=== PATIENT | female | born 1940 | race Caucasian/White ===

== ENCOUNTER → 2018-10-27 | Outpatient (CLI) | payer MEDICARE ==
[~2018-10-27] MED LIST: ALEN70; ASPI325; ASPI81CH; ATEN50 PO; ATOR20; CHOL10002; FISH1000; FURO20; MAGCHL64ER; POTA8; VITAMIN C500 MG
== END | disposition home or self-care (01) ==
LOC: LAB SHORT 07:52 → PLD 07:52
DX: D48.5 Neoplasm of uncertain behavior of skin (principal)
CPT/HCPCS: 88305

== ENCOUNTER → 2018-11-12 | Outpatient (CLI) | payer MEDICARE | END | disposition home or self-care (01) | LOC: PLD 08:11 → LAB SHORT 08:11 | DX: C44.41 Basal cell carcinoma of skin of scalp and neck (principal) | CPT/HCPCS: 88305 ==

== ENCOUNTER 2019-04-23 15:31 | Emergency (ER) | payer MEDICARE ==
[~2019-04-23] VITALS: Ht 147.3 cm; Wt 72.6 kg
[2019-04-23 16:20] LABS: BASOPHILS ABSOLUTE AUTO 0.06 K/mm3 (0.00-0.23); BASOPHILS PERCENT AUTO 0 % (0-2); EOSINOPHILS ABSOLUTE AUTO 0.19 K/mm3 (0.00-0.68); EOSINOPHILS PERCENT AUTO 1 % (0-6); Hematocrit 41.9 % (33.0-51.0); Hemoglobin 13.9 g/dL (11.5-16.0); IMMATURE GRAN ABSOLUTE AUTO 0.11 K/mm3 (0.00-0.10); IMMATURE GRAN PERCENT AUTO 1 % (0-1); LYMPHOCYTES ABSOLUTE AUTO 1.01 K/mm3 (0.84-5.20); LYMPHOCYTES PERCENT AUTO 6 % (21-46); MONOCYTES ABSOLUTE AUTO 1.15 K/mm3 (0.16-1.47); MONOCYTES PERCENT AUTO 6 % (4-13); Mean Corpuscular HGB 29.8 pg (26.0-34.0); Mean Corpuscular HGB Conc 33.2 g/dL (31.5-36.5); Mean Corpuscular Volume 90 fL (80-100); Mean Platelet Volume 11.8 fL (9.1-12.4); NEUTROPHILS ABSOLUTE AUTO 15.65 K/mm3 (1.96-9.15); NEUTROPHILS PERCENT AUTO 86 % (41-73); Platelet Count 170 K/mm3 (150-400); RDW Coefficient Variation 13.2 % (11.7-14.2); RDW Standard Deviation 43.5 fL (35.1-46.3); Red Blood Cell Count 4.67 M/mm3 (3.80-5.20); White Blood Cell Count 18.17 K/mm3 (4.00-11.30)
[2019-04-23 16:50] LABS: Alanine Aminotransfer (ALT/SGP 23 U/L (12-78); Albumin, Blood 3.7 g/dL (3.4-5.0); Alk Phos 75 U/L (50-136); Anion Gap 8 mmol/L (6-16); Aspartate Aminotrans (AST/SGOT 20 U/L (12-37); Bilirubin, Total 0.7 mg/dL (0.1-1.0); Blood Urea Nitrogen 40 mg/dL (8-24); Bun/Creatinine Ratio 37.7 (12.0-20.0); CO2, Blood 28 mmol/L (21-32); Calcium, Blood 9.5 mg/dL (8.5-10.1); Chloride, Blood 100 mmol/L (98-108); Creatinine, Blood 1.06 mg/dL (0.40-1.00); Globulin, Blood 3.8 g/dL (2.2-4.0); Glomerular Filtration Rate 53 (60-); Glucose, Blood 111 mg/dL (70-99); Potassium, Blood 3.9 mmol/L (3.5-5.5); Sodium, Blood 136 mmol/L (136-145); Total Protein, Blood 7.5 g/dL (6.4-8.2); Troponin I <0.015 ng/mL (0.000-0.040)
[2019-04-23 17:47] LABS: Source, Urine Clean Catch
[2019-04-23 17:58] LABS: Bilirubin, Urine Neg (Neg); Blood, Urine 2+ (Neg); Glucose Qualitative, Urine Neg (Neg); Ketones, Urine Neg (Neg); Leukocyte Esterase, Urine 3+ (Neg); Nitrite, Urine Neg (Neg); Protein, Urine 2+ (Neg); Specific Gravity, Urine 1.015 (1.003-1.022); Urobilinogen, Urine NORM (Normal)
[2019-04-23 18:12] LABS: Appearance, Urine Clear (Clear); Color, Urine Yellow (P-Yellow)
[2019-04-23 18:13] LABS: Bacteria Many /hpf; Squamous Epithelial Cells Few /hpf (Few); Transitional Epithelial Cells Few /hpf (0-Rare); White Blood Cells, Urine TNTC /hpf (0-5)
[2019-04-23] MEDS ORDERED: Macrobid 100 M100 MG PO (18:26)
== END 2019-04-23 18:55 | disposition home or self-care (01) ==
LOC: ER 15:31
PROVIDERS: Emergency Medicine
DX: R07.81 Pleurodynia (principal); N39.0 Urinary tract infection, site not specified; J44.9 Chronic obstructive pulmonary disease, unspecified; I50.9 Heart failure, unspecified; Z87.891 Personal history of nicotine dependence
CPT/HCPCS: 36415; 71046; 80053; 81001; 83880; 84484; 85025; 87086; 93005; 93010; 99284-25

== ENCOUNTER 2021-02-23 11:55 | Day surgery (SDC) | payer MEDICARE ==
[~2021-02-23] VITALS: Ht 147.3 cm; Wt 74.0 kg
[~2021-02-23 11:55] MED LIST changes: +ALEN70 PO; +ALLO300 PO; +ATOR20 PO; +Aspirin EC81 MG PO; +EPIPEN0.3 MG/0.3 IM; +FISH OIL 1,2001 EAC7 PO; +GABA300 PO; +Macrobid 100 M100 MG PO; +NAPR500 PO; +POTCHL20ER PO; +PROLIA60 MG/1 ML SC; +QVAR REDIHALE10.6 G2 INH; +VITAMIN D325 MC3 PO
[2021-02-23] MEDS ORDERED: ASCORBIC ACID500 MG (12:42)
[2021-02-23] MEDS ORDERED: TOCO1000 (12:42)
[2021-02-23] MEDS ORDERED: CANDICIDAL CAP1 EACH (12:42)
== END 2021-02-23 14:38 | disposition home or self-care (01) ==
LOC: ORSCSDS 11:55
PROVIDERS: Surgery
PROC: 0DJD8ZZ Inspection of Lower Intestinal Tract, Via Natural or Artificial Opening Endoscopic (ICD-10-PCS; principal; 2021-02-23 13:30)
DX: Z12.11 Encounter for screening for malignant neoplasm of colon (principal); Z80.0 Family history of malignant neoplasm of digestive organs; Z86.010 Personal history of colon polyps; K57.30 Diverticulosis of large intestine without perforation or abscess without bleeding; I25.10 Atherosclerotic heart disease of native coronary artery without angina pectoris; J44.9 Chronic obstructive pulmonary disease, unspecified; E78.5 Hyperlipidemia, unspecified; I10 Essential (primary) hypertension; N18.9 Chronic kidney disease, unspecified; I50.9 Heart failure, unspecified; Z79.899 Other long term (current) drug therapy; Z79.82 Long term (current) use of aspirin
CPT/HCPCS: 82947; J2704; J7120

== ENCOUNTER → 2022-02-20 | Outpatient (CLI) | payer MEDICARE ==
[~2022-02-20] MED LIST changes: +ASCORBIC ACID500 MG; +CANDICIDAL CAP1 EACH; +TOCO1000
== END | disposition home or self-care (01) ==
LOC: LAB 19:01 → LAB SHORT 19:01
DX: N39.0 Urinary tract infection, site not specified (principal)
CPT/HCPCS: 87077; 87086; 87186

== ENCOUNTER → 2022-04-26 | Outpatient (CLI) | payer MEDICARE ==
[2022-04-26 15:06] LABS: Source, Urine Clean Catch
[2022-04-26 15:36] LABS: Red Blood Cells, Urine 0-2 /hpf (0-2)
[2022-04-26 15:37] LABS: Bacteria Mod /hpf; Hyaline Casts 0-2 /lpf (0-2); Squamous Epithelial Cells Rare /hpf (Few); Transitional Epithelial Cells Rare /hpf (0-Rare)
== END | disposition home or self-care (01) ==
LOC: LAB SHORT 14:07 → LAB 14:07
PROVIDERS: Family Medicine
DX: R39.15 Urgency of urination (principal)
CPT/HCPCS: 81015; 87077; 87086; 87186

== ENCOUNTER → 2022-05-23 | Outpatient (CLI) | payer MEDICARE | END | disposition home or self-care (01) | LOC: LAB 17:12 → LAB SHORT 17:12 | DX: R53.83 Other fatigue (principal) | CPT/HCPCS: 84443 ==

== ENCOUNTER → 2022-10-07 | Outpatient (CLI) | payer MEDICARE ==
[2022-10-07 15:45] LABS: BASOPHILS ABSOLUTE AUTO 0.06 K/mm3 (0.00-0.23); BASOPHILS PERCENT AUTO 1 % (0-2); EOSINOPHILS ABSOLUTE AUTO 0.49 K/mm3 (0.00-0.68); EOSINOPHILS PERCENT AUTO 6 % (0-6); Hematocrit 39.5 % (33.0-51.0); Hemoglobin 13.1 g/dL (11.5-16.0); IMMATURE GRAN ABSOLUTE AUTO 0.02 K/mm3 (0.00-0.10); IMMATURE GRAN PERCENT AUTO 0 % (0-1); LYMPHOCYTES ABSOLUTE AUTO 1.79 K/mm3 (0.84-5.20); LYMPHOCYTES PERCENT AUTO 21 % (21-46); MONOCYTES ABSOLUTE AUTO 0.77 K/mm3 (0.16-1.47); MONOCYTES PERCENT AUTO 9 % (4-13); Mean Corpuscular HGB 29.8 pg (26.0-34.0); Mean Corpuscular HGB Conc 33.2 g/dL (31.5-36.5); Mean Corpuscular Volume 90 fL (80-100); Mean Platelet Volume 10.2 fL (9.1-12.4); NEUTROPHILS ABSOLUTE AUTO 5.31 K/mm3 (1.96-9.15); NEUTROPHILS PERCENT AUTO 63 % (41-73); Platelet Count 248 K/mm3 (150-400); RDW Coefficient Variation 13.4 % (11.7-14.2); RDW Standard Deviation 44.3 fL (35.1-46.3); Red Blood Cell Count 4.39 M/mm3 (3.80-5.20); White Blood Cell Count 8.44 K/mm3 (4.00-11.30)
[2022-10-07 15:55] LABS: Albumin, Blood 3.9 g/dL (3.4-5.0); Bilirubin, Total 0.4 mg/dL (0.1-1.0); Bun/Creatinine Ratio 24.3 (12.0-20.0); Calcium, Blood 9.7 mg/dL (8.5-10.1); Creatinine, Blood 1.11 mg/dL (0.40-1.00); Globulin, Blood 3.8 g/dL (2.2-4.0); Magnesium, Blood 2.4 mg/dL (1.6-2.4); Potassium, Blood 4.3 mmol/L (3.5-5.5); Total Protein, Blood 7.7 g/dL (6.4-8.2)
== END | disposition home or self-care (01) ==
LOC: LAB 15:39 → LAB SHORT 15:39
PROVIDERS: Emergency Medicine
DX: R55 Syncope and collapse (principal)
CPT/HCPCS: 80053; 83735; 83880; 84484; 85025

== ENCOUNTER → 2022-11-26 | Outpatient (CLI) | payer MEDICARE | END | disposition home or self-care (01) | LOC: PLD 07:18 → LAB SHORT 07:18 | DX: L57.0 Actinic keratosis (principal); L57.8 Other skin changes due to chronic exposure to nonionizing radiation | CPT/HCPCS: 88305 ==

== ENCOUNTER 2022-12-05 15:42 | Inpatient (IN) | payer MEDICARE ==
[~2022-12-05] VITALS: Ht 160 cm; Wt 77.5 kg
[2022-12-05 16:33] LABS: BASOPHILS ABSOLUTE AUTO 0.06 K/mm3 (0.00-0.23); BASOPHILS PERCENT AUTO 1 % (0-2); EOSINOPHILS ABSOLUTE AUTO 0.54 K/mm3 (0.00-0.68); EOSINOPHILS PERCENT AUTO 6 % (0-6); Hematocrit 39.3 % (33.0-51.0); Hemoglobin 12.7 g/dL (11.5-16.0); IMMATURE GRAN ABSOLUTE AUTO 0.03 K/mm3 (0.00-0.10); IMMATURE GRAN PERCENT AUTO 0 % (0-1); LYMPHOCYTES ABSOLUTE AUTO 2.12 K/mm3 (0.84-5.20); LYMPHOCYTES PERCENT AUTO 25 % (21-46); MONOCYTES PERCENT AUTO 7 % (4-13); Mean Corpuscular HGB 28.9 pg (26.0-34.0); Mean Corpuscular HGB Conc 32.3 g/dL (31.5-36.5); Mean Corpuscular Volume 89 fL (80-100); Mean Platelet Volume 10.7 fL (9.1-12.4); NEUTROPHILS ABSOLUTE AUTO 5.12 K/mm3 (1.96-9.15); NEUTROPHILS PERCENT AUTO 60 % (41-73); Platelet Count 210 K/mm3 (150-400); RDW Coefficient Variation 13.3 % (11.7-14.2); White Blood Cell Count 8.47 K/mm3 (4.00-11.30)
[2022-12-05 16:46] LABS: International Normalized Ratio 1.04; Prothrombin Time Results 10.9 Sec (9.7-11.5)
[2022-12-05 16:57] LABS: Albumin, Blood 3.7 g/dL (3.4-5.0); Bilirubin, Total 0.4 mg/dL (0.1-1.0); Bun/Creatinine Ratio 41.9 (12.0-20.0); Calcium, Blood 8.8 mg/dL (8.5-10.1); Creatinine, Blood 1.05 mg/dL (0.40-1.00); Globulin, Blood 3.7 g/dL (2.2-4.0); Potassium, Blood 4.1 mmol/L (3.5-5.5); Total Protein, Blood 7.4 g/dL (6.4-8.2)
[2022-12-05] MEDS ORDERED: SPIR25 PO (17:14)
[2022-12-05] MEDS ORDERED: TORSE20 PO (17:14)
[2022-12-05] MEDS ORDERED: TRAM50 PO (17:14)
[2022-12-05 19:47] VITALS: BP 156/38
--- NOTE | 2022-12-05 21:26 | NUR ---
TRANSFER NOTE/ASSUMPTION OF CARE THIS RN RECEIVED REPORT FROM GELACIO BARNES VIA TELEPHONE. PATIENT TRANSFERRED TO PCU AT 1957. PATIENT AMBULATED TO BED FROM [facility] WITH PERSONAL WALKER. PATIENT EDUCATED ON BEDREST STATUS D/T HEART BLOCK. PATIENT VERBALIZED UNDERSTANDING. BP STABLE WITH SBP 140-150'S. SPO2 >94% ON RA. SB WITH 1ST DEGREE HB ON MONITOR, IN/OUT OF 3RD DEGREE HB AT TIMES. DENIES CHEST PAIN/PRESSURE, SOB, DIZZINESS/LIGHTHEADEDNESS. BLE EDEMA NOTED. ANNE. BS+. PPP. ALERT AND ORIENTED FULLY. ABLE TO MAKE NEEDS KNOWN. MD MOORE AT BEDSIDE TO DISCUSS PLAN OF CARE. PT WILL BE NPO AT MIDNIGHT FOR PACEMAKER PLACEMENT IN TOMORROW. PT VERBALIZED UNDERSTANDING OF PLAN OF CARE. BED IN LOWEST POSITION AND CALL LIGHT WITHIN REACH.
[2022-12-05 23:28] VITALS: BP 153/67
[2022-12-06] VITALS (7 sets, daily range): BP systolic 111–166; BP diastolic 43–92
--- NOTE | 2022-12-06 04:51 | NUR ---
SHIFT SUMMARY NO ACUTE CHANGES OVERNIGHT. PATIENT CONTINUES TO BE SB/SR WITH 1ST DEGREE HB AND BBB, WITH HR 43-70S. DENIES CHEST PAIN/PRESSURE, SOB, DIZZINESS/LIGHTHEADEDNESS. BP STABLE. AFEBRILE. SPO2 >92% ON RA. PATIENT HAS BEEN NPO SINCE MIDNIGHT. PATIENT VERBALIZES UNDERSTANDING PLAN OF CARE. NO OTHER CHANGES SINCE PREVIOUS NOTE. SEE ASSESSMENT. BED IN LOWEST POSITION AND CALL LIGHT WITHIN REACH. THIS RN WILL CONTINUE TO MONITOR UNTIL SHIFT CHANGE AT 0700.
[2022-12-06 05:15] LABS: BASOPHILS ABSOLUTE AUTO 0.05 K/mm3 (0.00-0.23); BASOPHILS PERCENT AUTO 1 % (0-2); EOSINOPHILS ABSOLUTE AUTO 0.67 K/mm3 (0.00-0.68); EOSINOPHILS PERCENT AUTO 9 % (0-6); Hematocrit 36.3 % (33.0-51.0); Hemoglobin 11.7 g/dL (11.5-16.0); IMMATURE GRAN ABSOLUTE AUTO 0.01 K/mm3 (0.00-0.10); IMMATURE GRAN PERCENT AUTO 0 % (0-1); LYMPHOCYTES ABSOLUTE AUTO 2.09 K/mm3 (0.84-5.20); LYMPHOCYTES PERCENT AUTO 29 % (21-46); MONOCYTES ABSOLUTE AUTO 0.69 K/mm3 (0.16-1.47); MONOCYTES PERCENT AUTO 10 % (4-13); Mean Corpuscular HGB 28.9 pg (26.0-34.0); Mean Corpuscular HGB Conc 32.2 g/dL (31.5-36.5); Mean Corpuscular Volume 90 fL (80-100); Mean Platelet Volume 11.1 fL (9.1-12.4); NEUTROPHILS ABSOLUTE AUTO 3.78 K/mm3 (1.96-9.15); NEUTROPHILS PERCENT AUTO 52 % (41-73); Platelet Count 199 K/mm3 (150-400); RDW Coefficient Variation 13.3 % (11.7-14.2); RDW Standard Deviation 44.4 fL (35.1-46.3); Red Blood Cell Count 4.05 M/mm3 (3.80-5.20); White Blood Cell Count 7.29 K/mm3 (4.00-11.30)
[2022-12-06 06:01] LABS: Alanine Aminotransfer (ALT/SGP 21 U/L (12-78); Albumin, Blood 3.3 g/dL (3.4-5.0); Albumin/Globulin Ratio 1.1 (0.8-1.8); Alk Phos 44 U/L (50-136); Anion Gap 2 mmol/L (6-16); Aspartate Aminotrans (AST/SGOT 23 U/L (12-37); Bilirubin, Total 0.4 mg/dL (0.1-1.0); Blood Urea Nitrogen 44 mg/dL (8-24); Bun/Creatinine Ratio 40.4 (12.0-20.0); CHOL/HDL RATIO 2.2; CO2, Blood 31 mmol/L (21-32); Calcium, Blood 8.8 mg/dL (8.5-10.1); Chloride, Blood 105 mmol/L (98-108); Cholesterol 155 mg/dL (50-200); Creatinine, Blood 1.09 mg/dL (0.40-1.00); Glomerular Filtration Rate 51 (60-); Glucose, Blood 110 mg/dL (70-99); HDL Cholesterol 72 mg/dL (>39); Low Density Lipoprotein Chol 69 mg/dL (0-110); Potassium, Blood 3.4 mmol/L (3.5-5.5); Sodium, Blood 138 mmol/L (136-145); Total Protein, Blood 6.3 g/dL (6.4-8.2); Triglycerides 68 mg/dL (30-160); Very Low Density Lipoprot Chol 13 mg/dL (6-32)
--- NOTE | 2022-12-06 15:33 | NUR ---
SHIFT SUMMARY PATIENT ALERT AND ORIENTED. NPO IN AM AND BEDREST FOR PACEMAKER. RETURNED FROM [facility] AT 1300. COMPRESSION DRESSING IN PLACE TO LEFT CHEST C/D/I. VSS. ROOM AIR. TELE PACED 60S-70S. LEFT ARM IN SLING. BEDREST EXCEPT FOR COMMODE. TOLERATING CARDIAC DIET AND LIQUIDS, VOIDING WELL. REPORTS PRESSURE AND BURNING WITH URINATION LIKE SHE IS GETTING A UTI. SPOKE WITH DR MCFARLANE AND URINE SAMPLE SENT TO LAB. PLAN IS TO MONITOR OVERNIGHT AND PROBABLE DISCHARGE HOME TOMORROW 07/09/23. ATTENTIVE IN ROOM. WILL GIVE REPORT TO MANUEL LEMA RN.
[2022-12-06 15:41] LABS: Source, Urine Clean Catch
[2022-12-06 15:48] LABS: Appearance, Urine Cloudy (Clear); Bilirubin, Urine Neg (Neg); Blood, Urine 3+ (Neg); Color, Urine Yellow (P-Yellow); Glucose Qualitative, Urine Neg (Neg); Ketones, Urine Neg (Neg); Leukocyte Esterase, Urine 3+ (Neg); Nitrite, Urine Neg (Neg); Protein, Urine 2+ (Neg); Specific Gravity, Urine 1.015 (1.003-1.022); Urobilinogen, Urine NORM (Normal)
[2022-12-06 16:08] LABS: White Blood Cells, Urine TNTC /hpf (0-5)
[2022-12-06 16:09] LABS: Bacteria Few /hpf; Squamous Epithelial Cells Few /hpf (Few)
--- NOTE | 2022-12-06 18:28 | NUR ---
NO CHANGES IN PT CONDITION SINCE ASSUMING CARE. NO CHANGES TO PACEMAKER SITE. PT ABLE TO USE CALL LIGHT FOR NEEDS, CALL LIGHT IN REACH, WILL CONTINUE TO MONITOR AND GIVE REPORT TO NOC SHIFT RN.
--- NOTE | 2022-12-06 21:11 | NUR ---
ASSUMPTION OF CARE THIS RN ASSUMED CARE OF PATIENT AT 1900. REPORT TAKEN FROM MANUEL BARNES. PATIENT ALERT AND ORIENTED FULLY. LEFT CHEST WALL PACEMAKER SITE WITH PRESSURE DRESSING IN PLACE. GAUZE/TEGADERM DRESSING UNDER PRESSURE DRESSING WITH DRY BLOOD ON GAUZE. NO SIGNS OF CONTNIUED BLEEDING, HEMATOMA, OR DISCOLORATION. TENDER TO PALPATION. ICE PACK GIVEN. NO NOTED SUBCUTANEOUS EMPHYSEMA WITH PALPATION. SLING IN PLACE ON LEFT ARM. PATIENT VERBALIZED UNDERSTANDING LIMITATIONS TO ARM MOVEMENTS. MEDICATED PER EMAR FOR PAIN. BP STABLE. SR ON MONITOR WITH BBB AND OCCASIONAL PACED BEATS NOTED, HR 60-70'S. AFEBRILE. SPO2 >92% ON RA. DENIES CHEST PAIN/PRESSURE. ANNE. BS+. C/O BURNING WITH URINATION; UA SENT ON THE PREVIOUS SHIFT. CALLS APPROPRIATELY FOR ASSISTANCE. 1P ASSIST TO BSC WITH 4WW. BED IN LOWEST POSITION AND CALL LIGHT WITHIN REACH.
[2022-12-07 03:37] VITALS: BP 135/45
--- NOTE | 2022-12-07 05:16 | NUR ---
SHIFT SUMMARY NO ACUTE CHANGES OVERNIGHT. PACEMAKER DRESSING CONTINUES TO HAVE SMALL AMOUNT OF DRY SANGUINOUS DRAINAGE ON GAUZE. TENDER TO TOUCH. NO SUBCUTANEOUS EMPYSEMA, INFLAMMATION OR HEMATOMA NOTED. SR BBB WITH OCCASIONAL PACED BEATS HR 60-70'S. BP STABLE. SPO2 >92% ON RA. AFEBRILE. PPP. BLE EDEMA NOTED. ALERT AND ORIENTED FULLY AND CALLING APPROPRIATELY FOR ASSISTANCE. 1P ASSIST TO BSC. BED IN LOWEST POSITION AND CALL LIGHT WITHIN REACH. SLING IN PLACE. THIS RN WILL CONTINUE TO MONITOR UNTIL SHIFT CHANGE AT 0700.
[2022-12-07 06:04] LABS: BASOPHILS ABSOLUTE AUTO 0.04 K/mm3 (0.00-0.23); BASOPHILS PERCENT AUTO 0 % (0-2); EOSINOPHILS ABSOLUTE AUTO 0.42 K/mm3 (0.00-0.68); EOSINOPHILS PERCENT AUTO 5 % (0-6); Hematocrit 38.4 % (33.0-51.0); Hemoglobin 12.7 g/dL (11.5-16.0); IMMATURE GRAN ABSOLUTE AUTO 0.02 K/mm3 (0.00-0.10); IMMATURE GRAN PERCENT AUTO 0 % (0-1); LYMPHOCYTES ABSOLUTE AUTO 1.29 K/mm3 (0.84-5.20); LYMPHOCYTES PERCENT AUTO 14 % (21-46); MONOCYTES ABSOLUTE AUTO 0.74 K/mm3 (0.16-1.47); MONOCYTES PERCENT AUTO 8 % (4-13); Mean Corpuscular HGB 29.5 pg (26.0-34.0); Mean Corpuscular HGB Conc 33.1 g/dL (31.5-36.5); Mean Corpuscular Volume 89 fL (80-100); Mean Platelet Volume 10.8 fL (9.1-12.4); NEUTROPHILS ABSOLUTE AUTO 6.53 K/mm3 (1.96-9.15); NEUTROPHILS PERCENT AUTO 72 % (41-73); Platelet Count 197 K/mm3 (150-400); RDW Coefficient Variation 13.6 % (11.7-14.2); RDW Standard Deviation 44.7 fL (35.1-46.3); White Blood Cell Count 9.04 K/mm3 (4.00-11.30)
[2022-12-07 06:31] LABS: Bun/Creatinine Ratio 31.8 (12.0-20.0); Calcium, Blood 8.7 mg/dL (8.5-10.1); Creatinine, Blood 0.82 mg/dL (0.40-1.00)
[2022-12-07 07:42] VITALS: BP 135/41
--- NOTE | 2022-12-07 07:42 | NUR ---
Given educational materials from Dr. Lozano for post pacer. Vital signs are stable. Discussed follow up appointments with the patient.
[2022-12-07] MEDS ORDERED: CEPH500 PO (10:12)
== END 2022-12-07 11:09 | disposition home or self-care (01) | DRG 243 ==
LOC: ER 15:42 → PCU 17:19
PROVIDERS: Emergency Medicine; Physician Assistant; ADMIT Internal Medicine
PROC: 0JH606Z Insertion of Pacemaker, Dual Chamber into Chest Subcutaneous Tissue and Fascia, Open Approach (ICD-10-PCS; principal; 2022-12-06)
PROC: 02H63JZ Insertion of Pacemaker Lead into Right Atrium, Percutaneous Approach (ICD-10-PCS; 2022-12-06)
PROC: 02HK3JZ Insertion of Pacemaker Lead into Right Ventricle, Percutaneous Approach (ICD-10-PCS; 2022-12-06)
DX: I44.2 Atrioventricular block, complete (principal); I50.32 Chronic diastolic (congestive) heart failure; N39.0 Urinary tract infection, site not specified; I35.0 Nonrheumatic aortic (valve) stenosis; J44.9 Chronic obstructive pulmonary disease, unspecified; E11.40 Type 2 diabetes mellitus with diabetic neuropathy, unspecified; M81.0 Age-related osteoporosis without current pathological fracture; I25.10 Atherosclerotic heart disease of native coronary artery without angina pectoris; E78.5 Hyperlipidemia, unspecified; G89.29 Other chronic pain; M54.9 Dorsalgia, unspecified; E66.9 Obesity, unspecified; I49.5 Sick sinus syndrome; B95.2 Enterococcus as the cause of diseases classified elsewhere; M10.9 Gout, unspecified; B96.20 Unspecified Escherichia coli [E. coli] as the cause of diseases classified elsewhere; Z96.653 Presence of artificial knee joint, bilateral; Z68.28 Body mass index [BMI] 28.0-28.9, adult; Z98.49 Cataract extraction status, unspecified eye; Z95.1 Presence of aortocoronary bypass graft; Z90.710 Acquired absence of both cervix and uterus; Z98.890 Other specified postprocedural states; Z98.891 History of uterine scar from previous surgery; Z87.891 Personal history of nicotine dependence; Z95.2 Presence of prosthetic heart valve; Z79.82 Long term (current) use of aspirin; Z79.899 Other long term (current) drug therapy
CPT/HCPCS: 33208; 36415; 71045; 71046; 76937; 80048; 80053; 80061; 81001; 83735; 83880; 84443; 85025; 85610; 87077; 87086; 87186; 93005; 93010; 99152; 99153; 99285-25; A9270; C1785; C1894; C1898; J0690; J1644; J2250; J3010; J7030; J7040

== ENCOUNTER → 2023-03-22 | Outpatient (CLI) | payer MEDICARE ==
[~2023-03-22] MED LIST changes: +CEPH500 PO; +SPIR25 PO; +TORSE20 PO; +TRAM50 PO
[2023-03-22 18:32] LABS: Bun/Creatinine Ratio 34.4 (12.0-20.0); Calcium, Blood 9.3 mg/dL (8.5-10.1); Creatinine, Blood 1.57 mg/dL (0.40-1.00); Potassium, Blood 3.8 mmol/L (3.5-5.5)
== END | disposition home or self-care (01) ==
LOC: LAB SHORT 17:27 → LAB 17:27
PROVIDERS: Family Medicine
DX: E87.6 Hypokalemia (principal); R73.01 Impaired fasting glucose
CPT/HCPCS: 80048; 83036

== ENCOUNTER → 2023-04-02 | Outpatient (CLI) | payer MEDICARE ==
[2023-04-03 14:07] LABS: Bun/Creatinine Ratio 42.9 (12.0-20.0); Calcium, Blood 9.2 mg/dL (8.5-10.1); Creatinine, Blood 1.19 mg/dL (0.40-1.00)
== END | disposition home or self-care (01) ==
LOC: LAB 16:34 → LAB SHORT 16:34
PROVIDERS: Family Medicine
DX: E87.6 Hypokalemia (principal)
CPT/HCPCS: 80048

== ENCOUNTER → 2023-08-29 | Outpatient (CLI) | payer MEDICARE | END | disposition home or self-care (01) | LOC: LAB 15:35 → LAB SHORT 15:35 | PROVIDERS: Family Medicine | DX: Z51.81 Encounter for therapeutic drug level monitoring (principal); Z79.899 Other long term (current) drug therapy | CPT/HCPCS: G0480 ==

== ENCOUNTER → 2023-11-28 | Outpatient (CLI) | payer MEDICARE ==
[2023-12-04 10:29] LABS: O-DESMETHYLTRAMADOL,URN, QUANT 589 ng/mL; TRAMADOL, URN, QUANT 1787 ng/mL
== END | disposition home or self-care (01) ==
LOC: LAB 17:31 → LAB SHORT 17:31
PROVIDERS: Family Medicine
DX: Z51.81 Encounter for therapeutic drug level monitoring (principal); Z79.899 Other long term (current) drug therapy
CPT/HCPCS: G0480

== ENCOUNTER → 2023-12-19 | Outpatient (CLI) | payer MEDICARE ==
[2023-12-19 21:32] LABS: Adenovirus F 40/41 Not Detected (NOT DETECT); Astrovirus Not Detected (NOT DETECT); Campylobacter Sp Not Detected (NOT DETECT); Cryptosporidium Not Detected (NOT DETECT); Cyclospora Cayetanensis Not Detected (NOT DETECT); E. Coli O157 Not Detected (NOT DETECT); Entamoeba Histolytica Not Detected (NOT DETECT); Enteroaggregative E. coli-EAEC Not Detected (NOT DETECT); Enteropathogenic E. coli-EPEC Not Detected (NOT DETECT); Enterotoxigenic E. coli-ETEC Not Detected (NOT DETECT); Giardia Lamblia Not Detected (NOT DETECT); Norovirus GI/GII Not Detected (NOT DETECT); Plesiomonas Shigelloides Not Detected (NOT DETECT); Rotavirus A Not Detected (NOT DETECT); Salmonella Sp Not Detected (NOT DETECT); Sapovirus Not Detected (NOT DETECT); Shiga Toxin-prod E. coli-STEC Not Detected (NOT DETECT); Shigella/Enteroin E. coli-EIEC Not Detected (NOT DETECT); Vibrio Cholerae Not Detected (NOT DETECT); Vibrio Sp Not Detected (NOT DETECT); Yersinia Enterocolitica Not Detected (NOT DETECT)
== END | disposition home or self-care (01) ==
LOC: LAB SHORT 18:47 → LAB 18:47
PROVIDERS: Family Medicine
DX: A09 Infectious gastroenteritis and colitis, unspecified (principal)
CPT/HCPCS: 87507

== ENCOUNTER 2024-07-16 23:44 | Inpatient (IN) | payer MEDICARE ==
[~2024-07-16] VITALS: Ht 144.8 cm; Wt 76.1 kg
[~2024-07-16 23:44] MED LIST changes: -ASCORBIC ACID500 MG; +ASCORBIC ACID500 MG PO
[2024-07-17 01:01] LABS: BASOPHILS ABSOLUTE AUTO 0.03 K/mm3 (0.00-0.23); BASOPHILS PERCENT AUTO 0 % (0-2); EOSINOPHILS ABSOLUTE AUTO 0.38 K/mm3 (0.00-0.68); EOSINOPHILS PERCENT AUTO 5 % (0-6); Hematocrit 31.3 % (33.0-51.0); Hemoglobin 10.4 g/dL (11.5-16.0); IMMATURE GRAN ABSOLUTE AUTO 0.02 K/mm3 (0.00-0.10); IMMATURE GRAN PERCENT AUTO 0 % (0-1); LYMPHOCYTES ABSOLUTE AUTO 1.64 K/mm3 (0.84-5.20); LYMPHOCYTES PERCENT AUTO 22 % (21-46); MONOCYTES ABSOLUTE AUTO 0.58 K/mm3 (0.16-1.47); MONOCYTES PERCENT AUTO 8 % (4-13); Mean Corpuscular HGB 29.4 pg (26.0-34.0); Mean Corpuscular HGB Conc 33.2 g/dL (31.5-36.5); Mean Corpuscular Volume 88 fL (80-100); Mean Platelet Volume 12.1 fL (9.1-12.4); NEUTROPHILS ABSOLUTE AUTO 4.71 K/mm3 (1.96-9.15); NEUTROPHILS PERCENT AUTO 64 % (41-73); Platelet Count 124 K/mm3 (150-400); RDW Coefficient Variation 13.4 % (11.7-14.2); RDW Standard Deviation 43.4 fL (35.1-46.3); Red Blood Cell Count 3.54 M/mm3 (3.80-5.20); White Blood Cell Count 7.36 K/mm3 (4.00-11.30)
[2024-07-17 01:48] LABS: Albumin, Blood 3.8 g/dL (3.4-5.0); Albumin/Globulin Ratio 1.1 (0.8-1.8); Bilirubin, Total 0.2 mg/dL (0.1-1.0); Bun/Creatinine Ratio 40.9 (12.0-20.0); Calcium, Blood 9.6 mg/dL (8.5-10.1); Creatinine, Blood 4.25 mg/dL (0.40-1.00); Globulin, Blood 3.4 g/dL (2.2-4.0); Total Protein, Blood 7.2 g/dL (6.4-8.2)
[2024-07-17 02:00] LABS: Source, Urine Clean Catch
[2024-07-17 02:12] LABS: Bilirubin, Urine Neg (Neg); Blood, Urine Neg (Neg); Glucose Qualitative, Urine Neg (Neg); Ketones, Urine Neg (Neg); Leukocyte Esterase, Urine 1+ (Neg); Nitrite, Urine Neg (Neg); Protein, Urine Neg (Neg); Specific Gravity, Urine 1.015 (1.003-1.022); Urobilinogen, Urine NORM (Normal)
[2024-07-17] MEDS ORDERED: MERIBIN5 MG PO (02:15)
[2024-07-17] MEDS ORDERED: OMEP20ER PO (02:15)
[2024-07-17] MEDS ORDERED: METO25ER PO (02:15)
[2024-07-17] MEDS ORDERED: TERB250 PO (02:16)
[2024-07-17] MEDS ORDERED: ELIQUIS2.5 MG PO (02:16)
[2024-07-17] MEDS ORDERED: LISI5 PO (02:16)
[2024-07-17] MEDS ORDERED: MELA3 PO (02:17)
[2024-07-17 02:23] LABS: Appearance, Urine Clear (Clear); Color, Urine Pale Yellow (P-Yellow)
[2024-07-17 02:24] LABS: Bacteria Few /hpf; Red Blood Cells, Urine 0-2 /hpf (0-2); Squamous Epithelial Cells Mod /hpf (Few)
[2024-07-17] MEDS ORDERED: NS 1,000 ML IV SCH ×2 (02:55→04:00)
[2024-07-17] MEDS ORDERED: Ondansetron 4 MG TAB PO PRN (03:45)
[2024-07-17] MEDS ORDERED: FLU VACC TS2024-25(6MOS UP)/PF 45 MCG/0.5 ML SYRINGE IM ONE (03:50)
[2024-07-17 04:52] LABS: BASOPHILS ABSOLUTE AUTO 0.03 K/mm3 (0.00-0.23); BASOPHILS PERCENT AUTO 1 % (0-2); EOSINOPHILS ABSOLUTE AUTO 0.36 K/mm3 (0.00-0.68); EOSINOPHILS PERCENT AUTO 6 % (0-6); Hematocrit 30.2 % (33.0-51.0); Hemoglobin 9.8 g/dL (11.5-16.0); IMMATURE GRAN ABSOLUTE AUTO 0.02 K/mm3 (0.00-0.10); IMMATURE GRAN PERCENT AUTO 0 % (0-1); LYMPHOCYTES PERCENT AUTO 26 % (21-46); MONOCYTES ABSOLUTE AUTO 0.53 K/mm3 (0.16-1.47); MONOCYTES PERCENT AUTO 8 % (4-13); Mean Corpuscular HGB Conc 32.5 g/dL (31.5-36.5); Mean Corpuscular Volume 89 fL (80-100); Mean Platelet Volume 12.3 fL (9.1-12.4); NEUTROPHILS ABSOLUTE AUTO 3.83 K/mm3 (1.96-9.15); NEUTROPHILS PERCENT AUTO 59 % (41-73); Platelet Count 119 K/mm3 (150-400); RDW Coefficient Variation 13.3 % (11.7-14.2); RDW Standard Deviation 43.1 fL (35.1-46.3); Red Blood Cell Count 3.38 M/mm3 (3.80-5.20); White Blood Cell Count 6.47 K/mm3 (4.00-11.30)
[2024-07-17 05:17] LABS: Magnesium, Blood 1.9 mg/dL (1.6-2.4)
[2024-07-17 05:30] LABS: Albumin, Blood 3.5 g/dL (3.4-5.0); Albumin/Globulin Ratio 1.1 (0.8-1.8); Bilirubin, Total 0.5 mg/dL (0.1-1.0); Bun/Creatinine Ratio 43.2 (12.0-20.0); Creatinine, Blood 3.8 mg/dL (0.40-1.00); Globulin, Blood 3.3 g/dL (2.2-4.0); Potassium, Blood 4.7 mmol/L (3.5-5.5); Total Protein, Blood 6.8 g/dL (6.4-8.2)
[2024-07-17] MEDS ORDERED: Gabapentin 100 MG Cap PO SCH (09:00)
[2024-07-17] MEDS ORDERED: Terbinafine 250 MG Tab PO SCH (09:00)
[2024-07-17] MEDS ORDERED: Famotidine 20 MG Tab PO SCH (09:00)
[2024-07-17] MEDS ORDERED: Metoprolol Succinate 25 MG TABCR PO SCH (09:00)
[2024-07-17] MEDS ORDERED: Apixaban 5 MG Tab PO SCH (09:00)
[2024-07-17] MEDS ORDERED: Regadenoson 0.4 MG/5 ML SYRINGE ONE (12:12)
[2024-07-17 13:30] LABS: Creatinine, Urine Random 31.8 mg/dL (27.00-270.00)
[2024-07-17 14:13] VITALS: BP 117/52
[2024-07-17 15:40] VITALS: BP 117/49
--- NOTE | 2024-07-17 16:12 | NUR ---
ADMISSION NOTE: PATIENT ARRIVED TO THE UNIT AT 1410 VIA GURNEY AND WAS TRANSFERRED ONTO THE BED. PATIENT ALERT AND ORIENTEDX4, CALLS APPROPRIATELY, AND IS A 1 PERSON/SBA WITH HER PERSONAL WALKER. HER SON AND ARRIVED SHORTLY AFTER. THEY ARE ALSO PLEASANT AND COOPERATIVE. PATIENT AND HER LIVE WITH THEIR SON ART WHO ASSIST WITH THEIR CARE. PATIENT IN BED, AT BEDSIDE, CALL LIGHT WITHIN REACH, IV FLUIDS GOING, NO SIGNS OR SYMPTOMS OF DISTRESS, PLAN OF CARE ONGOING.
--- NOTE | 2024-07-17 16:51 | NUR ---
PATIENT HAD A COMPLETELY FORMED STOOL IN THE TOILET; WAS UNABLE TO BE OBTAINED FOR SAMPLE. DR. MCFARLANE NOTIFIED.
[2024-07-17] MEDS ORDERED: ONDA4ODT SL (17:48)
[2024-07-17] MEDS ORDERED: DONEPEZIL HCL10 M1 PO (17:51)
[2024-07-17 19:53] VITALS: BP 95/59
[2024-07-17] MEDS ORDERED: Donepezil HCl 5 MG Tab PO SCH (21:00)
[2024-07-17] MEDS ORDERED: Atorvastatin 10 MG Tab PO SCH (21:00)
--- NOTE | 2024-07-18 03:47 | NUR ---
SHIFT SUMMARY PT ALERT ORIENTED CALLS APPROPRIATELY AMBULATES WITH WALKER WITH SBA TO BATHROOM. SHES DUE TO HAVE LABS DONE THIS AM TO CHECK ON HER CREATININE. SHES REQUESTING TO GO HOME THIS AM. I EXPLAINED TO HER IT DEPENDS ON HER LEVELS THIS AM. NO LOOSE STOOLS THIS SHIFT. REMAINS ON NS AT 125. SHE STATED THAT SHES FEELING MUCH BETTER SINCE GETTING THE FLUIDS SHES HAVING A HARD TIME SLEEPING R/T BEING IN THE HOSPITAL EVEN THOUGH HER DOORS CLOSED. SHES IN BED AT THIS TIME WITH CALL LIGHT IN REACH
[2024-07-18 04:44] VITALS: BP 128/50
[2024-07-18 06:25] LABS: BASOPHILS ABSOLUTE AUTO 0.03 K/mm3 (0.00-0.23); BASOPHILS PERCENT AUTO 1 % (0-2); EOSINOPHILS ABSOLUTE AUTO 0.32 K/mm3 (0.00-0.68); EOSINOPHILS PERCENT AUTO 5 % (0-6); Hematocrit 29.1 % (33.0-51.0); Hemoglobin 9.4 g/dL (11.5-16.0); IMMATURE GRAN ABSOLUTE AUTO 0.02 K/mm3 (0.00-0.10); IMMATURE GRAN PERCENT AUTO 0 % (0-1); LYMPHOCYTES ABSOLUTE AUTO 1.42 K/mm3 (0.84-5.20); LYMPHOCYTES PERCENT AUTO 23 % (21-46); MONOCYTES ABSOLUTE AUTO 0.57 K/mm3 (0.16-1.47); MONOCYTES PERCENT AUTO 9 % (4-13); Mean Corpuscular HGB 29.7 pg (26.0-34.0); Mean Corpuscular HGB Conc 32.3 g/dL (31.5-36.5); Mean Corpuscular Volume 92 fL (80-100); NEUTROPHILS ABSOLUTE AUTO 3.71 K/mm3 (1.96-9.15); NEUTROPHILS PERCENT AUTO 61 % (41-73); Platelet Count 100 K/mm3 (150-400); RDW Coefficient Variation 13.6 % (11.7-14.2); RDW Standard Deviation 45.7 fL (35.1-46.3); Red Blood Cell Count 3.16 M/mm3 (3.80-5.20); White Blood Cell Count 6.07 K/mm3 (4.00-11.30)
[2024-07-18 07:08] LABS: Bun/Creatinine Ratio 50.8 (12.0-20.0); Calcium, Blood 8.7 mg/dL (8.5-10.1); Creatinine, Blood 2.52 mg/dL (0.40-1.00); Potassium, Blood 4.7 mmol/L (3.5-5.5)
[2024-07-18 07:16] VITALS: BP 125/40
[2024-07-18] MEDS ORDERED: D5W-1/2NS 1,000 ML IV SCH (07:20)
[2024-07-18] MEDS ORDERED: CefTRIAXone Sodium 1,000 MG in NS 100 ML IV SCH (09:00)
[2024-07-18 15:01] VITALS: BP 110/42
--- NOTE | 2024-07-18 16:27 | NUR ---
SHIFT SUMMARY: A&OX4/SBA WITH PERSONAL 4 WHEELED WALKER; NEEDS LINE MANAGEMENT. PATIENT STARTED ON IV ANTIBIOTICS TODAY FOR POSITIVE URINE CULTURE. SHE CONTINUES TO GET IV FLUIDS; D5% 1/2 NS AT 100ML/HR; KIDNEY FUNCTION HAS IMPROVED. PATIENT SITTING IN BEDSIDE CHAIR ACCOMPANIED BY HER , WATCHING TV, CALL LIGHT WITHIN REACH, NO SIGNS OR SYMPTOMS OF DISTRESS, PLAN OF CARE ONGOING. POSSIBLE DISCHARGE 07/19 DEPENDING ON KIDNEY FUNCTION.
[2024-07-18 19:52] VITALS: BP 115/48
[2024-07-18] MEDS ORDERED: Melatonin 5 MG Tablet PO SCH (21:00)
[2024-07-19 04:07] VITALS: BP 110/41
--- NOTE | 2024-07-19 05:07 | NUR ---
SHIFT SUMMARY PT ALERT ORIENTED CALLS APPROPRIATELY. WAS ABLE TO SLEEP MOST OF THE NIGHT AFTER GETTING HER MELATONIN. REMAINS ON D5 1/2 NS AT 100. GETS UP TO BATHROOM WITH WALKER AND SBA. NO C/O PAIN OR SOB THIS SHIFT. REMAINS ON ROCEPHIN ORDERED. VSS THIS SHIFT SATTING 100% ON RA. SLEEPING IN BED AT THIS TIME WITH CALL LIGHT IN REACH
[2024-07-19 06:25] LABS: BASOPHILS ABSOLUTE AUTO 0.02 K/mm3 (0.00-0.23); BASOPHILS PERCENT AUTO 0 % (0-2); EOSINOPHILS ABSOLUTE AUTO 0.32 K/mm3 (0.00-0.68); EOSINOPHILS PERCENT AUTO 6 % (0-6); Hematocrit 25.9 % (33.0-51.0); Hemoglobin 8.3 g/dL (11.5-16.0); IMMATURE GRAN ABSOLUTE AUTO 0.03 K/mm3 (0.00-0.10); IMMATURE GRAN PERCENT AUTO 1 % (0-1); LYMPHOCYTES ABSOLUTE AUTO 1.21 K/mm3 (0.84-5.20); LYMPHOCYTES PERCENT AUTO 23 % (21-46); MONOCYTES ABSOLUTE AUTO 0.52 K/mm3 (0.16-1.47); MONOCYTES PERCENT AUTO 10 % (4-13); Mean Corpuscular Volume 91 fL (80-100); Mean Platelet Volume 12.9 fL (9.1-12.4); NEUTROPHILS ABSOLUTE AUTO 3.22 K/mm3 (1.96-9.15); NEUTROPHILS PERCENT AUTO 61 % (41-73); Platelet Count 108 K/mm3 (150-400); RDW Coefficient Variation 13.7 % (11.7-14.2); RDW Standard Deviation 44.7 fL (35.1-46.3); Red Blood Cell Count 2.86 M/mm3 (3.80-5.20); White Blood Cell Count 5.32 K/mm3 (4.00-11.30)
[2024-07-19 06:48] LABS: Bun/Creatinine Ratio 47.5 (12.0-20.0); Calcium, Blood 8.4 mg/dL (8.5-10.1); Creatinine, Blood 2.04 mg/dL (0.40-1.00); Potassium, Blood 4.2 mmol/L (3.5-5.5)
[2024-07-19 08:10] VITALS: BP 132/37
[2024-07-19] MEDS ORDERED: Dextrose 5% 1,000 ML IV SCH (13:40)
[2024-07-19 15:28] VITALS: BP 118/52
--- NOTE | 2024-07-19 18:48 | NUR ---
PT HAS BEEN RESTING WELL T/O THE DAY. SHE DENIES CP OR SOB. VSS. DENIES PAIN. AMBULATES TO BATHROOM WITHOUT DIFFICULTY. FLUIDS CAHNGED TO D5 AT 150/HR. SHE IS A/O X4 PLEASANT AND COOPERATIVE WITH CARE. TAKES MEDS WELL WITH WATER. ABLE TO MAKE NEEDS KNOWN
[2024-07-19 19:03] VITALS: BP 123/49
[2024-07-20 02:22] VITALS: BP 135/65
--- NOTE | 2024-07-20 04:33 | NUR ---
SHIFT SUMMARY PT ALERT ORIENTED CALLS APPROPRIATELY AMBULATES TO BATHROOM WITH WALKER AND SBA. C/O RT ARM PAIN WHICH SHE STATED IS NORMAL FOR HER. PUT A WARM BLANKET OVER IT AND IT HELPED TO PROVIDE RELIEF. SHE RECIEVED D5 AT 150 X 2 LITERS. REMAINS ON ROCEPHIN ORDERED FOR A UTI AND ITS DUE TO BE CHANGED TO CEFPODOXIME PO TODAY. VSS ON RA SATTING AT 99-100%. SHES HAVING LABS DONE THIS AM AND DEPENDING HOW HER KIDNEY FUNCTION IS SHE MAY DC TO HOME TODAY. SHES SLEEPING IN BED AT THIS TIME WITH CALL LIGHT IN REACH
[2024-07-20 04:58] LABS: BASOPHILS ABSOLUTE AUTO 0.03 K/mm3 (0.00-0.23); BASOPHILS PERCENT AUTO 1 % (0-2); EOSINOPHILS ABSOLUTE AUTO 0.31 K/mm3 (0.00-0.68); EOSINOPHILS PERCENT AUTO 6 % (0-6); Hematocrit 26.3 % (33.0-51.0); Hemoglobin 8.6 g/dL (11.5-16.0); IMMATURE GRAN ABSOLUTE AUTO 0.01 K/mm3 (0.00-0.10); IMMATURE GRAN PERCENT AUTO 0 % (0-1); LYMPHOCYTES ABSOLUTE AUTO 1.34 K/mm3 (0.84-5.20); LYMPHOCYTES PERCENT AUTO 24 % (21-46); MONOCYTES ABSOLUTE AUTO 0.49 K/mm3 (0.16-1.47); MONOCYTES PERCENT AUTO 9 % (4-13); Mean Corpuscular HGB 29.5 pg (26.0-34.0); Mean Corpuscular HGB Conc 32.7 g/dL (31.5-36.5); Mean Corpuscular Volume 90 fL (80-100); Mean Platelet Volume 12.3 fL (9.1-12.4); NEUTROPHILS ABSOLUTE AUTO 3.32 K/mm3 (1.96-9.15); NEUTROPHILS PERCENT AUTO 60 % (41-73); Platelet Count 108 K/mm3 (150-400); RDW Coefficient Variation 13.9 % (11.7-14.2); Red Blood Cell Count 2.92 M/mm3 (3.80-5.20)
[2024-07-20 05:23] LABS: Bun/Creatinine Ratio 44.3 (12.0-20.0); Calcium, Blood 8.4 mg/dL (8.5-10.1); Creatinine, Blood 1.58 mg/dL (0.40-1.00); Potassium, Blood 4.1 mmol/L (3.5-5.5)
[2024-07-20 07:33] VITALS: BP 122/78
[2024-07-20] MEDS ORDERED: Cephalexin Monohydrate 500 MG Cap PO SCH (09:35)
[2024-07-20] MEDS ORDERED: Dextrose 5% 1,000 ML IV SCH (12:00)
[2024-07-20 15:23] VITALS: BP 115/64
--- NOTE | 2024-07-20 18:43 | NUR ---
PT ALERT AND ORIENTED, UP IN CHAIR, SBA TO BATHROOM. CREATININE 1.58 THIS AM, CONCERNED WITH EDEMA, AND OTHER RENAL LABS, DR. VOSS CONSULTED AND PT TO DISCHARGE TOMORROW. PT HAS +2 PITTING EDEMA BLE R/T CHF AND HOLDING DIURETICS DUE TO CHRONIC ON ACUTE RENAL FAILURE. D5W, RESTARTED AT 75/HR, IV ABX CHANGED TO PO. VSS, RA, NON-TELE, CALL LIGHT IN REACH, CALLS APPROPRIATELY.
[2024-07-20 19:12] VITALS: BP 114/45
[2024-07-21 04:29] VITALS: BP 126/61
--- NOTE | 2024-07-21 05:19 | NUR ---
NOC SUMMARY- NO NEW ISSUES NOTED. PT DENIES DISCOMFORT OR SOB. PT REMAINS ON IVF. PT HAS BEEN VOIDING. PT AMBULATES WITH SBA AND HER FWW. PT FEET HAVE BEEN ELEVATED WHILE IN BED. PT HAS BEEN ABLE TO REST QUIETLY THIS SHIFT. CALL LIGHT IN REACH.
[2024-07-21 05:55] LABS: Albumin, Blood 2.8 g/dL (3.4-5.0); Anion Gap 12 mmol/L (3-11); Blood Urea Nitrogen 58 mg/dL (8-24); Bun/Creatinine Ratio 42.3 (12.0-20.0); CO2, Blood 19 mmol/L (21-32); Calcium, Blood 8.6 mg/dL (8.5-10.1); Chloride, Blood 122 mmol/L (98-108); Creatinine, Blood 1.37 mg/dL (0.40-1.00); Glomerular Filtration Rate 39 (60-); Glucose, Blood 112 mg/dL (70-99); Phosphorus, Blood 2.7 mg/dL (2.5-4.9); Potassium, Blood 4.2 mmol/L (3.5-5.5); Sodium, Blood 149 mmol/L (136-145); Uric Acid, Blood 3.2 mg/dL (2.6-6.0)
[2024-07-21 07:48] VITALS: BP 131/47
--- NOTE | 2024-07-21 10:54 | NUR ---
Pt. is awake and sitting up turner recliner when she welcomed my visit. Pt. is pleasant and displayed evidence of anticipating discharge and was preparing to call family. Facilitated a short life review and considered matters of heidi and belief. Pt. welcomed prayer. Prayed with Pt. pt. verbalized gratitude for the spiritual care visit.
[2024-07-21] MEDS ORDERED: CEPH500 PO (12:46)
--- NOTE | 2024-07-21 13:19 | NUR ---
PATIENT DISCHARGED AT 1307 TODAY. PATIENT HAS BEEN INDEPENDENT IN ROOM THIS MORNING FOLLOWING COMPLETION OF HER IV FLUIDS. PATIENT AMBULATES WITH USE OF HER WALKER. PATIENT A&OX4. PATIENT WHEELED OUT TO PERSONAL VEHICLE BY SON AND HOSPITAL WHEELCHAIR. ALL VALUABLES TAKEN FROM ROOM BY PATIENT AND FAMILY. DISCHARGE INSTRUCTIONS DISCUSSED WITH PATIENT AND SON BY THIS RN, MEDICATIONS FAXED TO [facility] [place] CALLED TO CONFIRM PATIENT TAKING KEFLEX WITHOUT ISSUSE AT HOSPITAL-CONFIRMED WITH [facility] PATIENT HAS NOT REPORTED ANY ISSUES NOR ANY ISSUES NOTED WITH THIS MEDICATION. PATIENTS SON TO [facility] HOME DEMONSTRATOR NEW MEDICATIONS. PATIENT EDUCATED TO COMPLETE ALL ANTIBIOTICS ORDERED EVEN IT PATIENT STARTS TO FEEL BETTER. PATIENT ACKNOWLEDGED INSTRUCTIONS AND DISCHARGED HOME.
[2024-07-21] MEDS ORDERED: Apixaban 5 MG Tab PO SCH (21:00)
== END 2024-07-21 13:08 | disposition home or self-care (01) | DRG 683 ==
LOC: ER 23:44 → ERHOLD 23:45 → MEDS 23:45 → ERHOLD 23:45 → MEDS 07-17 14:17 → ENPENDDIS 07-21 13:02 → MEDS 07-21 13:08
PROVIDERS: Emergency Medicine; Hospitalist; Internal Medicine; Student in an Organized Health Care Education/Training Program; ADMIT Student in an Organized Health Care Education/Training Program
DX: N17.9 Acute kidney failure, unspecified (principal); E87.0 Hyperosmolality and hypernatremia; N39.0 Urinary tract infection, site not specified; I50.32 Chronic diastolic (congestive) heart failure; E87.20 Acidosis, unspecified; T36.95XA Adverse effect of unspecified systemic antibiotic, initial encounter; Z95.0 Presence of cardiac pacemaker; F03.A0 Unspecified dementia, mild, without behavioral disturbance, psychotic disturbance, mood disturbance, and anxiety; E11.22 Type 2 diabetes mellitus with diabetic chronic kidney disease; K52.9 Noninfective gastroenteritis and colitis, unspecified; E78.5 Hyperlipidemia, unspecified; I12.9 Hypertensive chronic kidney disease with stage 1 through stage 4 chronic kidney disease, or unspecified chronic kidney disease; M81.0 Age-related osteoporosis without current pathological fracture; E11.42 Type 2 diabetes mellitus with diabetic polyneuropathy; J44.9 Chronic obstructive pulmonary disease, unspecified; D63.1 Anemia in chronic kidney disease; M10.9 Gout, unspecified; Z79.01 Long term (current) use of anticoagulants; Z95.2 Presence of prosthetic heart valve; B96.89 Other specified bacterial agents as the cause of diseases classified elsewhere; I35.0 Nonrheumatic aortic (valve) stenosis; Z90.49 Acquired absence of other specified parts of digestive tract; Z98.890 Other specified postprocedural states; Z90.710 Acquired absence of both cervix and uterus; Z95.1 Presence of aortocoronary bypass graft; Z79.899 Other long term (current) drug therapy; N18.32 Chronic kidney disease, stage 3b; Z87.891 Personal history of nicotine dependence
CPT/HCPCS: 36415; 76770; 80048; 80053; 80069; 81001; 82570; 83735; 83880; 84300; 84540; 84550; 84560; 85025; 87077; 87086; 87186; 96360; 96361; 96365; 96366; 99284; A9270; G0378; J0696; J2785; J7030; J7042; J7070

== ENCOUNTER → 2024-08-05 | Outpatient (CLI) | payer MEDICARE ==
[~2024-08-05] MED LIST changes: +DONEPEZIL HCL10 M1 PO; +ELIQUIS2.5 MG PO; +LISI5 PO; +MELA3 PO; +MERIBIN5 MG PO; +METO25ER PO; +OMEP20ER PO; +ONDA4ODT SL; +TERB250 PO
[2024-08-05 15:44] LABS: Source, Urine Voided
[2024-08-05 16:21] LABS: Appearance, Urine Clear (Clear); Bilirubin, Urine Neg (Neg); Blood, Urine Neg (Neg); Glucose Qualitative, Urine Neg (Neg); Ketones, Urine Neg (Neg); Leukocyte Esterase, Urine Neg (Neg); Nitrite, Urine Neg (Neg); Protein, Urine Neg (Neg); Urobilinogen, Urine NORM (Normal)
[2024-08-05 17:04] LABS: Color, Urine Pale Yellow (P-Yellow)
== END | disposition home or self-care (01) ==
LOC: LAB 12:04 → LAB SHORT 12:04
PROVIDERS: Hospitalist
DX: N18.32 Chronic kidney disease, stage 3b (principal); D47.2 Monoclonal gammopathy
CPT/HCPCS: 81003

== ENCOUNTER → 2024-12-14 | Outpatient (CLI) | payer MEDICARE ==
[2024-12-25 13:28] LABS: O-DESMETHYLTRAMADOL,URN, QUANT 883 ng/mL; TRAMADOL, URN, QUANT >10000 ng/mL
== END | disposition home or self-care (01) ==
LOC: LAB 13:53 → LAB SHORT 13:53
PROVIDERS: Family Medicine
DX: Z51.81 Encounter for therapeutic drug level monitoring (principal); Z79.899 Other long term (current) drug therapy
CPT/HCPCS: G0480

== ENCOUNTER → 2025-05-25 | Outpatient (CLI) | payer MEDICARE ==
[2025-05-25 21:38] LABS: Creatinine, Urine Random 61.40 mg/dL (27.00-270.00); Microalb/Creat Ratio UR, Rand Unable to Calculate mg/g (0.000-30.000); Microalbumin, Random Urine <5.000 mg/L (0.000-20.000)
== END | disposition home or self-care (01) ==
LOC: LAB 17:15 → LAB SHORT 17:15
PROVIDERS: Family Medicine
DX: E11.22 Type 2 diabetes mellitus with diabetic chronic kidney disease (principal); E11.51 Type 2 diabetes mellitus with diabetic peripheral angiopathy without gangrene
CPT/HCPCS: 82043; 82570